=== PATIENT | female | born 1935 | race Two or more races ===

== ENCOUNTER 2020-06-15 09:23 | Outpatient (CLI) | payer OTHER ==
[~2020-06-15] VITALS: Ht 152.4 cm; Wt 74.8 kg
[2020-06-15] MEDS ORDERED: ATACAND4 MG (09:25)
[2020-06-15] MEDS ORDERED: TEMAZEPAM7.5 M1 (09:25)
[2020-06-15] MEDS ORDERED: SYNTHROID88 MCG (09:25)
== END 2020-06-15 10:40 | disposition home or self-care (01) ==
LOC: OFIC 805 09:23
PROVIDERS: ATTEND Otolaryngology
DX: R07.0 Pain in throat (principal); R13.19 Other dysphagia; K21.9 Gastro-esophageal reflux disease without esophagitis; R42 Dizziness and giddiness; H61.21 Impacted cerumen, right ear; H90.42 Sensorineural hearing loss, unilateral, left ear, with unrestricted hearing on the contralateral side

== ENCOUNTER 2020-08-06 10:19 | Outpatient (CLI) | payer OTHER ==
[~2020-08-06 10:19] MED LIST: ATACAND4 MG; SYNTHROID88 MCG; TEMAZEPAM7.5 M1
== END 2020-08-06 13:12 | disposition home or self-care (01) ==
LOC: OFIC 805 10:19
PROVIDERS: ATTEND Otolaryngology
DX: E04.1 Nontoxic single thyroid nodule (principal)